=== PATIENT | male | born 1975 | race Caucasian/White ===

== ENCOUNTER → 2016-12-26 | Day surgery (SDC) | payer OTHER ==
[2014-12-03 13:21] VITALS: BP 147/85
[~2016-12-26] MED LIST: BUPIVAC MPF-EPI 0.5%-1:200000 30 ML VIAL. ONE; IBUP200T43 PO; METH-37 PO; NAPR220C4 PO; PRED20TA PO; TRAM50TA PO
--- NOTE | 2016-12-26 18:16 | OP ---
DATE OF SURGERY: 12/26/2016 PREOPERATIVE DIAGNOSIS: Cyst of forehead. POSTOPERATIVE DIAGNOSIS: Cyst of forehead. PROCEDURE: Excision of same. SURGEON: Rich Arroyo MD ANESTHESIA: Local. SPECIMEN: Skin and subcutaneous tissue forehead left, 3 x 1.5 x 1 cm. DESCRIPTION OF PROCEDURE: The patient brought to the operating suite and the forehead was prepped and draped in usual sterile fashion. An elliptical skin incision was outlined in the preop area with the patient's assistance was infiltrated with 0.5% Marcaine with epinephrine and the skin was incised. The skin underlying process was removed en bloc. Hemostasis with cautery and 3-0 Vicryl skin tie. Correct sponge count was obtained and hemostasis was present. The wound was closed with interrupted inverted 3-0 Vicryl in the subcutaneous tissue, subcuticular 4-0 Monocryl with Steri-Strips for the skin. Sterile dressing applied. The patient taken to the postoperative area in stable condition having tolerated the procedure well. RICH ARROYO MD DR: BEENA/harlan JOB#: [id number] / [id number]
--- NOTE | 2016-12-31 13:20 | PATHOLOGY ---
PATHOLOGY REPORT * * * * * * * * FINAL DIAGNOSIS: Skin and subcutaneous tissue, forehead: - Epidermal inclusion cyst, ruptured, with acute and chronic inflammation and foreign body giant cell reaction. COMMENT: There is no evidence of malignancy. (JPM:mml; 12/31/2016) REPORT ELECTRONICALLY SIGNED BY: Valeriy Saenz M.D. DATE/TIME: 12/31/2016 13:19 * * * * * * * * GROSS PATHOLOGY: The specimen is received in formalin, labeled "Jerilyn Anaya and skin and subcutaneous tissue forehead (per requisition slip)" and consists of an unoriented segment of hennessy-brown skin measuring 2.2 x 0.7 cm. The deep margin is disrupted. The specimen is inked. The subcutaneous tissue is composed of a thin walled cyst void of contents. Conveyancer sections are submitted as A1. (ADELIA; 12/30/2016) INITIAL CPT CODE(S): A; 17006 Professional services performed [place] [address] Technical services performed by [facility] at [address] [place] [address]. SPECIMEN(S) RECEIVED: A.Skin and subcutaneous tissue forehead CLINICAL HISTORY: Sebaceous cyst PATIENT: JERILYN ANAYA /AGE: 1001/21/1975 (Age: 41) PATIENT #: [id number] ALT CASE #: SPECIMEN COLLECTION DATE: 12/26/2016 SPECIMEN RECEIVED DATE: 12/27/2016 [facility] - [address] [place] [id number] - PHONE: [phone] * * * END OF REPORT * * *
== END | disposition home or self-care (01) ==
LOC: SURG 11:00
PROVIDERS: ATTEND Surgery
DX: L72.3 Sebaceous cyst (principal); F32.9 Major depressive disorder, single episode, unspecified
CPT/HCPCS: 11406; 88304; J3490